=== PATIENT | male | born 1980 | race Hispanic/Latino ===

== ENCOUNTER 2020-04-11 11:02 | Emergency (ER) | payer OTHER ==
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
[2020-04-11 14:30] VITALS: TEMP 97.4; O2SAT 96
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
[2020-04-11 15:31] VITALS: BP 115/80
== END 2020-04-11 15:06 | disposition home or self-care (01) ==
LOC: ER 11:02
DX: S43.402A Unspecified sprain of left shoulder joint, initial encounter (principal); R91.8 Other nonspecific abnormal finding of lung field; V47.6XXA Car passenger injured in collision with fixed or stationary object in traffic accident, initial encounter; Y92.410 Unspecified street and highway as the place of occurrence of the external cause; Z87.891 Personal history of nicotine dependence